=== PATIENT | male | born 1945 | race Caucasian/White ===

== ENCOUNTER 2018-11-23 08:11 | Day surgery (SDC) | payer MEDICARE, BC ==
[~2018-11-23] VITALS: Ht 177.8 cm; Wt 126.0 kg
[~2018-11-23 08:11] MED LIST: ASPI-496 PO; BUPIVACAINE/EPI 0.5% 1:200K ONE; CELE200C PO; CYAN50002 PO; DIGO125T PO; EMPA25TA PO; FINA5TAB4 PO; FLUT9.9S NAS; GABA300C10 PO; GLIM4TAB2 PO; IPRA0.2S35 INH; LACT1CAP35 PO; LIDOCAINE 1%-EPI 1:100K, 20ML ONE; LIDOCAINE/MPF 2%-EPI 1:200K, 20 ML ONE; LOVA20TA2 PO; METF10007 PO; METO-99 PO; MULT1TAB60 PO; OMEP20TA62 PO; POTA10TA12 PO; RIVA20TA PO; SACU1TAB4 PO; SPIR25TA5 PO; TAMS-11 PO; TORS20TA PO; Vitamin D3 PO; [UNRECOGNIZED DRUG - CODE] PO
[2018-11-23] MEDS ORDERED: LACTATED RINGERS 1,000 ML IV SCH (08:31)
[2018-11-23 08:47] VITALS: BP 102/68
[2018-11-23] MEDS ORDERED: ONDANSETRON 2MG/ML, 2ML ONE (10:57)
[2018-11-23] MEDS ORDERED: CEFAZOLIN 1,000 MG ONE (10:57)
[2018-11-23] MEDS ORDERED: DEXAMETHASONE 4 MG/ML, 1ML ONE (10:57)
[2018-11-23] MEDS ORDERED: SUCCINYLCHOLINE 20 MG/ML, 10ML ONE (10:57)
[2018-11-23] MEDS ORDERED: FENTANYL PF 250 MCG/5ML ONE (10:57)
[2018-11-23] MEDS ORDERED: EPHEDRINE 50 MG/ML, 1ML ONE (10:57)
[2018-11-23] MEDS ORDERED: PROPOFOL 10 MG/ML, 20ML ONE (10:57)
[2018-11-23] MEDS ORDERED: MIDAZOLAM 1 MG/ML, 2ML ONE (11:14)
[2018-11-23] MEDS ORDERED: FENTANYL PF 100 MCG/2ML IV PRN (11:30)
[2018-11-23] MEDS ORDERED: MEPERIDINE/PF 25MG/0.5ML IVPush PRN (11:30)
[2018-11-23] MEDS ORDERED: OXYcodone 5 MG/5 ML ORAL.SOL UDC PO PRN (11:30)
[2018-11-23] MEDS ORDERED: PROMETHAZINE 25 MG/ML, 1ML IV PRN (11:30)
[2018-11-23] MEDS ORDERED: HYDROmorphone 2 MG/ML, 1ML IVPush PRN (11:30)
[2018-11-23] MEDS ORDERED: LABETALOL 5MG/ML, 20ML IV PRN (11:30)
[2018-11-23] MEDS ORDERED: hydrALAzine 20 MG/ML, 1ML IV PRN (11:30)
[2018-11-23] MEDS ORDERED: ACETAMINOPHEN 325 MG TABLET PO PRN (11:30)
[2018-11-23] MEDS ORDERED: DIAZEPAM 5 MG/ML, 2ML IVPush PRN (11:30)
[2018-11-23] MEDS ORDERED: ALBUTEROL SULFATE 2.5 MG/3 ML NPPB PRN (11:30)
[2018-11-23] MEDS ORDERED: OXYcodone 5 MG/5 ML ORAL.SOL UDC ONE (12:33)
[2018-11-23] MEDS ORDERED: GABAPENTIN 300 MG CAPSULE PO SCH (16:00)
[2018-11-23] MEDS ORDERED: LOVASTATIN 20 MG TABLET PO SCH (21:00)
[2018-11-23] MEDS ORDERED: METOPROLOL TARTRATE 100 MG TABLET PO SCH (21:00)
[2018-11-24] MEDS ORDERED: FINASTERIDE 5 MG TABLET PO SCH (09:00)
[2018-11-24] MEDS ORDERED: RIVAROXABAN 20 MG TABLET PO SCH (09:00)
[2018-11-24] MEDS ORDERED: TORSEMIDE 20 MG TABLET PO SCH (09:00)
[2018-11-24] MEDS ORDERED: SPIRONOLACTONE 25 MG TABLET PO SCH (09:00)
[2018-11-24] MEDS ORDERED: DIGOXIN 0.125 MG TABLET PO SCH (09:00)
[2018-11-24] MEDS ORDERED: TAMSULOSIN 0.4 MG CAP.ER.24H PO SCH (09:00)
[2018-11-24] MEDS ORDERED: ASPIRIN 81 MG TABLET EC PO SCH (09:00)
[2018-11-24] MEDS ORDERED: GLIMEPIRIDE 4 MG TABLET PO SCH (09:00)
[2018-11-24] MEDS ORDERED: MULTIVITAMIN 1 TABLET PO SCH (09:00)
== END 2018-11-23 16:00 | disposition home or self-care (01) ==
LOC: OUT 08:11
PROVIDERS: ATTEND Orthopaedic Surgery
DX: M75.111 Incomplete rotator cuff tear or rupture of right shoulder, not specified as traumatic (principal); M19.011 Primary osteoarthritis, right shoulder; M75.41 Impingement syndrome of right shoulder; M66.821 Spontaneous rupture of other tendons, right upper arm; M94.211 Chondromalacia, right shoulder; I25.10 Atherosclerotic heart disease of native coronary artery without angina pectoris; E11.9 Type 2 diabetes mellitus without complications; K21.9 Gastro-esophageal reflux disease without esophagitis; I10 Essential (primary) hypertension; G47.33 Obstructive sleep apnea (adult) (pediatric); E66.9 Obesity, unspecified; Z68.41 Body mass index [BMI] 40.0-44.9, adult; Z79.899 Other long term (current) drug therapy; Z79.84 Long term (current) use of oral hypoglycemic drugs
CPT/HCPCS: 29823; 29824; 29826; 29999; 64415; 82962; 93005; J0330; J0690; J1100; J2250; J2405; J2704; J3010; J3490; J7120